=== PATIENT | male | born 1990 | race Two or more races ===

== ENCOUNTER 2020-12-26 09:01 | Emergency (ER) | payer MEDICAID, OTHER ==
[~2020-12-26] VITALS: Ht 185.4 cm; Wt 76.0 kg
[2020-12-26 10:15] VITALS: BP 117/70
[2020-12-26] MEDS ORDERED: KETOROLAC 60MG/2ML VIAL IM ONE (10:15)
[2020-12-26] MEDS ORDERED: IBUP-2029 MT (11:25)
== END 2020-12-26 11:44 ==
LOC: ER 09:01
DX: S70.02XA Contusion of left hip, initial encounter (principal); Y35.893A Legal intervention involving other specified means, suspect injured, initial encounter; Y93.89 Activity, other specified; Y92.488 Other paved roadways as the place of occurrence of the external cause
CPT/HCPCS: 73502; 96372; 99283; J1885